=== PATIENT | female | born 1980 | race Caucasian/White ===

== ENCOUNTER 2017-09-09 20:13 | Inpatient (IN) | payer OTHER ==
[~2017-09-09] VITALS: Ht 170.2 cm; Wt 81.8 kg
[2017-09-09 22:09] LABS: BASOPHIL % 0.3 % (0-2); PLATELET COUNT 284 x10^3mcL (130-400); RED CELL DISTRIBUTION WIDTH 13.1 % (11.5-14.5)
[2017-09-09 22:12] LABS: AMPHETAMINE QUAL UR NONE DETECTED (NEG <=1000)
[2017-09-09 22:17] LABS: CALCIUM 8.8 mg/dL (8.5-10.1); CARBON DIOXIDE 25.4 mmol/L (21-32); CHLORIDE SERUM 102 mmol/L (98-107); CREATININE SERUM 0.9 mg/dL (0.6-1.0); GFR1 > 60 mL/min; GLUCOSE SERUM 120 mg/dL (74-106); POTASSIUM SERUM 3.4 mmol/L (3.5-5.1); SODIUM SERUM 138 mmol/L (136-145)
[2017-09-09 22:21] LABS: ALBUMIN 3.7 g/dL (3.4-5.0); ALKALINE PHOSPHATASE 72 U/L (46-116); ALT/SGPT 18 U/L (14-59); AST/SGOT 15 U/L (15-37); BILIRUBIN TOTAL 0.5 mg/dL (0.20-1.00); LIPASE 181 IU/L (73-393); TOTAL PROTEIN, SERUM 7.4 g/dL (6.4-8.2)
[2017-09-09 22:22] LABS: AMYLASE 226 U/L (25-115)
[2017-09-09 22:23] LABS: microscopic required? YES; urine erythrocyte NEGATIVE (NEGATIVE)
[2017-09-10] VITALS (7 sets, daily range): BP systolic 94–118; BP diastolic 48–61; Ht 170.2 cm; Wt 81.8 kg
[2017-09-10 02:23] LABS: MAGNESIUM 1.6 mg/dL (1.8-2.4); PHOSPHOROUS 2.2 mg/dL (2.5-4.9); T3 TOTAL 0.98 ng/mL
[2017-09-10 02:25] LABS: CHOLESTEROL/HDL RATIO 2.6
[2017-09-10 02:29] LABS: FREE T4 1.03 ng/dL (0.76-1.46); FREE THYROXINE INDEX 2.4 ug/dL (1.4-4.5); T4(THYROXINE) 6.9 ug/dL (4.7-13.3)
[2017-09-10 06:33] LABS: BASOPHIL % 0.1 % (0-2); PLATELET COUNT 244 x10^3mcL (130-400)
[2017-09-10 06:54] LABS: CALCIUM 8.1 mg/dL (8.5-10.1); CARBON DIOXIDE 24.6 mmol/L (21-32); CHLORIDE SERUM 101 mmol/L (98-107); CREATININE SERUM 0.8 mg/dL (0.6-1.0); GFR1 > 60 mL/min; GLUCOSE SERUM 116 mg/dL (74-106); MAGNESIUM 1.7 mg/dL (1.8-2.4); PHOSPHOROUS 3.6 mg/dL (2.5-4.9); POTASSIUM SERUM 3.3 mmol/L (3.5-5.1); SODIUM SERUM 138 mmol/L (136-145)
[2017-09-10] MEDS ORDERED: LEV500PM IV (12:03)
[2017-09-10] MEDS ORDERED: PRI20 PO (12:04)
[2017-09-10] MEDS ORDERED: FLA500I IV (12:04)
== END 2017-09-10 14:40 | disposition short-term general hospital (02) | DRG 438 ==
LOC: ED 20:13 → DU 09-10 00:39
PROVIDERS: Family Medicine
DX: K85.90 Acute pancreatitis without necrosis or infection, unspecified (principal); N17.0 Acute kidney failure with tubular necrosis; A04.8 Other specified bacterial intestinal infections; I88.0 Nonspecific mesenteric lymphadenitis; E87.6 Hypokalemia; E83.39 Other disorders of phosphorus metabolism; E83.42 Hypomagnesemia; K44.9 Diaphragmatic hernia without obstruction or gangrene
CPT/HCPCS: 83880; 84439; 87046; 87046-59; J1885; J1956; J2270; J2405; J3475; J3480; J3490; J7030; Q0092